=== PATIENT | male | born 1970 | race African-American/Black ===

== ENCOUNTER → 2020-01-08 | Outpatient (CLI) | payer BC ==
--- NOTE | 2020-01-08 09:47 | KCIC ---
EXAM: Brain MRI without contrast. HISTORY: Migraine. Dizziness. Vertigo. TECHNIQUE: Multiplanar, multisequence magnetic resonance imaging of the brain was performed without contrast. COMPARISON: None. FINDINGS: There is no restricted diffusion to suggest acute or subacute infarction. There is no susceptibility effect to suggest hemorrhage. There is no mass effect or midline shift. There is no hydrocephalus. No suspicious white matter lesion is seen. The orbits are unremarkable. There is mild paranasal sinus because of thickening. There are small right maxillary sinus mucous retention cysts. The mastoid air cells are clear. There are normal flow voids within the cerebral vessels. No calvarial lesion is seen. IMPRESSION: No acute intracranial finding. Electronically signed by: Erika Soto MD (01/08/2020 9:44 AM) [id number]
== END | disposition home or self-care (01) ==
LOC: KCIC MRI 08:28
PROVIDERS: ATTEND Psychiatry & Neurology Neurology with Special Qualifications in Child Neurology
DX: G43.009 Migraine without aura, not intractable, without status migrainosus (principal); J34.1 Cyst and mucocele of nose and nasal sinus; R42 Dizziness and giddiness
CPT/HCPCS: 70551